=== PATIENT | male | born 1935 | race Two or more races ===

== ENCOUNTER 2018-10-10 23:25 | Inpatient (IN) | payer OTHER, MEDICAID ==
[~2018-10-10] VITALS: Ht 172.7 cm; Wt 81.6 kg
--- NOTE | 2018-10-10 23:32 | NUR ---
REYNALDO FROM HOME FOR GEN WEAKNESS PER DAUGHTERS REPORT; PT ALERT, VERBALLY RESPONSIVE, PT ON MONITOR, VSS, NAD NOTED. PENDING MD BOX
[2018-10-11 01:00] LABS: BASOPHILS # (AUTO) 0.2 /CMM (0.0-0.2); BASOPHILS % (AUTO) 3.1 % (0.0-2.0); HEMATOCRIT 41 % (39-51); HEMOGLOBIN 13.2 g/dL (13.5-17.5); LYMPHOCYTES # (AUTO) 0.5 /CMM (0.8-4.8); LYMPHOCYTES % (AUTO) 8.8 % (20.0-44.0); MEAN CORPUSCULAR HGB CONC 33 g/dl (31.0-36.0); MEAN CORPUSCULAR VOLUME 94 fL (80-96); MONOCYTES # (AUTO) 0.4 /CMM (0.1-1.30); MONOCYTES % (AUTO) 6.4 % (2.0-12.0); NEUTROPHILS # (AUTO) 4.6 /CMM (1.8-8.9); NEUTROPHILS % (AUTO) 81.7 % (43.0-81.0); PLATELET COUNT (AUTO) 133 /CMM (150-450); RED BLOOD CELL COUNT(AUTO) 4.33 MIL/uL (4.5-6.0); WHITE BLOOD COUNT (AUTO) 5.6 K/uL (4.3-11.0)
[2018-10-11] MEDS ORDERED: IV NS 0.9% 1,000 ML BAG IV ONE (01:00)
[2018-10-11 01:08] LABS: CALCIUM, SERUM 8.4 mg/dL (8.5-10.1); CARBON DIOXIDE 29 mmol/L (21-32); CHLORIDE 96 mmol/L (98-107); CREATININE 1.1 mg/dL (0.6-1.3); GLUCOSE 119 mg/dL (74-106); POTASSIUM 3.9 mmol/L (3.5-5.1); SODIUM SERUM 131 mmol/L (136-145); UREA NITROGEN, BLOOD 15 mg/dL (7-18)
[2018-10-11 01:13] LABS: SERUM AMMONIA 9 umol/L (11-32)
--- NOTE | 2018-10-11 01:22 | NUR ---
URINE COLLECTED AND SENT TO LAB
[2018-10-11 01:25] LABS: ACETAMINOPHEN 0 ug/ml (10-30); ALANINE AMINOTRANSFERASE 60 U/L (12-78); ALBUMIN 2.7 g/dL (3.4-5.0); ALCOHOL, BLOOD < 3 mg/dL (0-0); ALKALINE PHOSPHATASE 112 U/L (46-116); ASPARTATE AMINOTRANSFERASE 43 U/L (15-37); BILIRUBIN,DIRECT 0.2 mg/dL (0.0-0.2); BILIRUBIN,TOTAL 0.9 mg/dL (0.2-1.0); TOTAL PROTEIN, SERUM 6.7 g/dL (6.4-8.2)
[2018-10-11 01:49] LABS: APPEARANCE,URINE SL CLOUDY (CLEAR); BILIRUBIN,URINE NEGATIVE (NEGATIVE); BLOOD, URINE 3+ Ery/uL (NEGATIVE); COLOR,URINE YELLOW (YELLOW); KETONES,URINE 1+ (NEGATIVE); LEUKOCYTE ESTERASE ,URINE NEGATIVE (NEGATIVE); NITRITE, URINE NEGATIVE (NEGATIVE); PH,URINE 8.5 (5.0-8.0); PROTEIN,URINE 1+ mg/dl (NEGATIVE); UGLUCOSE NEGATIVE (NEGATIVE)
[2018-10-11 01:57] LABS: BACTERIA,URINE None seen /HPF (None Seen); RBC,URINE 51-80 /HPF (0-2); SQUAMOUS EPITHELIAL CELL,UR Few /HPF (None Seen); WBC,URINE 0-2 /HPF (0-3)
[2018-10-11 02:03] LABS: THYROID STIMULATING HORMONE 1.469 uIU/mL (0.358-3.74)
[2018-10-11] MEDS ORDERED: DILTIAZEM HCL 50 MG IV IV ONE ×2 (02:30→03:30)
[2018-10-11] MEDS ORDERED: DILTIAZEM HCL 25 MG IV ONE (02:32)
--- NOTE | 2018-10-11 03:12 | NUR ---
GRANDDAUGHTER CONTACT INFORMATION:
--- NOTE | 2018-10-11 03:14 | NUR ---
[facility]
[2018-10-11] MEDS ORDERED: LISI10TA5 GT (03:32)
[2018-10-11] MEDS ORDERED: RIVA10TA GT (03:32)
[2018-10-11] MEDS ORDERED: CHOL100062 GT (03:32)
[2018-10-11] MEDS ORDERED: GLYC1TAB12 GT (03:32)
[2018-10-11] MEDS ORDERED: METO50TA16 GT (03:32)
[2018-10-11] MEDS ORDERED: TERA1CAP4 GT (03:32)
[2018-10-11] MEDS ORDERED: FINA5TAB11 GT (03:32)
[2018-10-11] MEDS ORDERED: ATOR20TA GT (03:32)
[2018-10-11] MEDS ORDERED: FURO40TA5 GT (03:32)
[2018-10-11] MEDS ORDERED: LANS30CA56 PO (03:32)
--- NOTE | 2018-10-11 03:45 | NUR ---
REPORT GIVEN TO SONJA SCHRADER FOR [facility] PATIENT WILL BE TRANSPORTED VIA [facility]
[2018-10-11] MEDS ORDERED: ZOLPIDEM TARTRATE 5 MG TABLET PO PRN (04:00)
[2018-10-11] MEDS ORDERED: ONDANSETRON HCL/PF 4 MG/2 ML VIAL IVP PRN (04:00)
[2018-10-11] MEDS ORDERED: MAGNESIUM HYDROXIDE 30 ML UDC PO PRN (04:00)
[2018-10-11] MEDS ORDERED: ACETAMINOPHEN 325 MG TABLET PO PRN (04:00)
[2018-10-11] MEDS ORDERED: Z GUARD REMEDY 2 OZ OINT TP PRN (04:00)
[2018-10-11] MEDS ORDERED: HYDROCODONE/APAP 5/325MG 1 EACH TABLET PO PRN (04:00)
[2018-10-11] MEDS ORDERED: MAG HYDROX/AL HYDROX/SIMETH 30 ML UDC PO PRN (04:00)
[2018-10-11] MEDS ORDERED: METOPROLOL TARTRATE INJ 5 MG/5 ML AMPUL IVP PRN (04:00)
--- NOTE | 2018-10-11 04:00 | NUR ---
CLAY STRUCTURE BUILDER AND SERVICER ADMITTING NOTES RECEIVED PT FROM ER VIA [facility] IN STABLE CONDITION. PT A/O X3 AND ABLE TO MAKE NEEDS KNOWN. PT WITH GTUBE, PATENT AND INTACT. PT WITH RIGHT AC 18G SL, PATENT AND INTACT. PT ON TELE MONITORING AT AFIB 110. NO COMPLAINTS OF PAIN AT THIS TIME. CALL LIGHT WITHIN REACH. WILL CONTINUE TO MONITOR.
[2018-10-11] MEDS ORDERED: DILTIAZEM HCL 30 MG TABLET PO SCH (06:00)
[2018-10-11 06:34] LABS: MAGNESIUM 1.7 mg/dL (1.8-2.4); PHOSPHORUS 2.2 mg/dL (2.5-4.9)
[2018-10-11 06:37] LABS: THYROID STIMULATING HORMONE 1.135 uIU/mL (0.358-3.74)
[2018-10-11 06:45] VITALS: BP 151/97
[2018-10-11] MEDS ORDERED: ZOLPIDEM TARTRATE 5 MG TABLET GT PRN (07:30)
[2018-10-11] MEDS ORDERED: ACETAMINOPHEN 650 MG/20.3 ML UDC GT PRN (07:30)
[2018-10-11] MEDS ORDERED: MAGNESIUM HYDROXIDE 30 ML UDC GT PRN (07:30)
--- NOTE | 2018-10-11 07:52 | NUR ---
PLACEMENT OFFICER NOTES PT IN BED AWAKE WATCHING TV. PT A/O X3 AND ABLE TO MAKE NEEDS KNOWN. PT WITH GTUBE, PATENT AND INTACT. PT NPO. PT WITH RIGHT AC 18G SL, PATENT AND INTACT. PT ON TELE MONITORING AT AFIB 103. NO COMPLAINTS OF PAIN AT THIS TIME. CALL LIGHT WITHIN REACH. WILL ENDORSE TO ONCOMING NURSE FOR S[place].
[2018-10-11 08:00] VITALS: BP 150/88
[2018-10-11] MEDS ORDERED: HYDROCODONE/APAP 5/325MG 1 EACH TABLET GT PRN (08:00)
--- NOTE | 2018-10-11 08:00 | NUR ---
M/S ASBESTOS BRAKE LINING FINISHER OPENING NOTES PATIENT A/O X 2 AND ABLE TO MAKE NEEDS KNOWN. RESPIRATION EVEN AND UNLABORED WITH NO ACUTE RESPIRATORY DISTRESS. ABDOMEN SOFT AND NON DISTENDED WITH ACTIVE BOWEL SOUNDS. DENIES PAIN AND DISCOMFORT. SKIN WARM TO TOUCH. IV SITE ON RIGHT ANTECUBITAL WITH NO S/SX OF INFILTRATION. TELE MONITOR ON ATRIAL FIBRILLATION AT 108. ALL CONCERNS NOTED, PLACED CALL LIGHT WITHIN REACH TO ENSURE SAFETY. WILL CONTINUE TO EVALUATE CARE.
[2018-10-11] MEDS: Magnesium 1GM/D5W 100ML PREMIX 100 ML IV SCH ×2 (09:59→11:38)
[2018-10-11] MEDS: CHOLECALCIFEROL 1,000 UNIT TABLET (VIT D3) GT SCH (10:00)
[2018-10-11] MEDS ORDERED: MAG HYDROX/AL HYDROX/SIMETH 30 ML UDC GT PRN (10:00)
[2018-10-11] MEDS: FINASTERIDE (5 MG) 5 MG TABLET GT SCH (10:00)
[2018-10-11] MEDS: LISINOPRIL (10MG) 10 MG TABLET GT SCH (10:00)
[2018-10-11] MEDS: GLYCOPYRROLATE 1 MG TABLET GT SCH ×3 (10:02→22:20)
[2018-10-11] MEDS: NEUTRA PHOS 1 POWD.PACKET GT SCH ×2 (10:02→17:28)
[2018-10-11] MEDS: METOPROLOL TARTRATE 50 MG TABLET GT SCH ×2 (12:40→17:28)
[2018-10-11] MEDS: DILTIAZEM HCL 30 MG TABLET GT SCH ×2 (12:41→17:30)
[2018-10-11 16:00] VITALS: BP 119/71
[2018-10-11] MEDS ORDERED: GLUCERNA 1.2 1,000 ML BOTTLE GT SCH ×2 (17:00→22:00)
[2018-10-11] MEDS: GLUCERNA SHAKE 237 ML CAN GT SCH (17:27)
[2018-10-11] MEDS ORDERED: RIVAROXABAN 10 MG TABLET GT SCH (18:00)
--- NOTE | 2018-10-11 18:47 | NUR ---
M/S RN CLOSING NOTES PATIENT A/O X4 AND ABLE TO MAKE NEEDS KNOWN WITH UNCLEAR SPEECH DUE TO ABSENCE OF TONGUE. RESPIRATION EVEN AND NON LABORED WITH NO ACUTE RESPIRATORY DISTRESS. ABDOMEN SOFT AND NON DISTENDED WITH ACTIVE BOWEL SOUNDS, NO BM THIS SHIFT WITHOUT URGE AT THIS TIME. SKIN WARM TO TOUCH, INTACT AND DRY WITH NO OPEN SKIN BREAKDOWN. IV SITE PATENT ON RIGHT ANTECUBITAL WITH GAUGE #18, ON KVO. ALL CONCERNS ATTENDED, PLACED CALL LIGHT WITHIN REACH TO ENSURE SAFETY AT ALL TIMES. ENDORSED PATIENT CONDITION TO NEXT SHIFT.
--- NOTE | 2018-10-11 19:20 | NUR ---
MS/RN NOTES RECEIVED PT. LYING IN BED. PT. IS RESTING, EASILY AROUSABLE TO NAME. AWAKE, ALERT AND ORIENTED X3. BREATHING EVEN AND UNLABORED ON ROOM NO SOB, RESPIRATORY DISTRESS OR COMPLAINTS OF PAIN NOTED AT THIS TIME. PT. WITH RIGHT AC 18 GAUGE PRESENT, PATENT AND INTACT. PT. REMAINS NPO AT THIS TIME. PT. WITH G-TUBE PRESENT, PATENT AND INTACT. BED LOCKED AND IN LOWEST POSITION, SIDE RAILS UP X2, BED ALARM ON, WILL CONTINUE TO MONITOR.
[2018-10-11 20:00] VITALS: BP 108/56
[2018-10-11] MEDS ORDERED: GLUCERNA SHAKE 237 ML CAN GT SCH (22:00)
[2018-10-11] MEDS ORDERED: TERAZOSIN HCL 1 MG CAPSULE GT SCH (22:00)
[2018-10-12] MEDS: METOPROLOL TARTRATE 50 MG TABLET GT SCH ×3 (00:42→12:08)
[2018-10-12] MEDS: DILTIAZEM HCL 30 MG TABLET GT SCH ×3 (00:42→12:08)
[2018-10-12 04:05] LABS: BASOPHILS % (AUTO) 0.5 % (0.0-2.0); HEMATOCRIT 38 % (39-51); HEMOGLOBIN 12.6 g/dL (13.5-17.5); LYMPHOCYTES # (AUTO) 0.7 /CMM (0.8-4.8); LYMPHOCYTES % (AUTO) 13.4 % (20.0-44.0); MEAN CORPUSCULAR HGB CONC 33 g/dl (31.0-36.0); MEAN CORPUSCULAR VOLUME 93 fL (80-96); MONOCYTES # (AUTO) 0.5 /CMM (0.1-1.30); MONOCYTES % (AUTO) 9.6 % (2.0-12.0); NEUTROPHILS # (AUTO) 4.3 /CMM (1.8-8.9); NEUTROPHILS % (AUTO) 76.5 % (43.0-81.0); PLATELET COUNT (AUTO) 107 /CMM (150-450); RED BLOOD CELL COUNT(AUTO) 4.08 MIL/uL (4.5-6.0); WHITE BLOOD COUNT (AUTO) 5.6 K/uL (4.3-11.0)
[2018-10-12 04:18] LABS: ALANINE AMINOTRANSFERASE 48 U/L (12-78); ALBUMIN 2.3 g/dL (3.4-5.0); ALKALINE PHOSPHATASE 85 U/L (46-116); ASPARTATE AMINOTRANSFERASE 40 U/L (15-37); CARBON DIOXIDE 28 mmol/L (21-32); CHLORIDE 99 mmol/L (98-107); CHOLESTEROL 53 mg/dL (<200); GLUCOSE 99 mg/dL (74-106); HDL CHOLESTEROL 28 mg/dL (40-60); LDL 27 mg/dL (0-99); MAGNESIUM 1.9 mg/dL (1.8-2.4); PHOSPHORUS 2.4 mg/dL (2.5-4.9); POTASSIUM 4.1 mmol/L (3.5-5.1); SODIUM SERUM 132 mmol/L (136-145); TOTAL PROTEIN, SERUM 6.1 g/dL (6.4-8.2); TRIGLYCERIDES 27 mg/dL (30-150); UREA NITROGEN, BLOOD 15 mg/dL (7-18)
[2018-10-12] MEDS: GLYCOPYRROLATE 1 MG TABLET GT SCH ×2 (06:11→12:08)
[2018-10-12] MEDS ORDERED: PANTOPRAZOLE 40 MG TABLET.DR PO SCH (07:30)
[2018-10-12 08:00] VITALS: BP 119/76
--- NOTE | 2018-10-12 08:09 | NUR ---
M/S RN OPENING NOTES PATIENT A/O X 4 AND ABLE TO MAKE NEEDS KNOWN. RESPIRATION EVEN AND UNLABORED WITH NO ACUTE RESPIRATORY DISTRESS, WHEEZES PRESENT UPON AUSCULTATION. ABDOMEN SOFT AND NON DISTENDED WITH ACTIVE BOWEL SOUNDS. SKIN WARM TO TOUCH, INTACT AND DRY. DENIES PAIN AND DISCOMFORT AT THIS TIME. IV LINE ON RIGHT ANTECUBITAL PATENT WITH NO S/SX OF INFILTRATION, RUNNING ON KVO. ALL CONCERNS ADDRESSED. PLACED CALL LIGHT WITHIN REACH TO ENSURE SAFETY. WILL CONTINUE TO EVALUATE CARE.
[2018-10-12] MEDS ORDERED: AZITHROMYCIN 250 MG TABLET GT ONE (08:30)
[2018-10-12] MEDS ORDERED: NEUTRA PHOS 1 POWD.PACKET GT SCH (08:30)
--- NOTE | 2018-10-12 08:34 | NUR ---
RACIEL Decker will get checklist completed before CT scan takes place. Pt. will be ready for CT at around 0900.
[2018-10-12] MEDS: FINASTERIDE (5 MG) 5 MG TABLET GT SCH (08:49)
[2018-10-12] MEDS: CHOLECALCIFEROL 1,000 UNIT TABLET (VIT D3) GT SCH (08:49)
[2018-10-12] MEDS: LISINOPRIL (10MG) 10 MG TABLET GT SCH (08:50)
[2018-10-12] MEDS: GLUCERNA SHAKE 237 ML CAN GT SCH ×2 (08:51→12:08)
[2018-10-12] MEDS ORDERED: IOHEXOL-300 100 ML VIAL IV ONE (10:01)
[2018-10-12] MEDS ORDERED: IV NS 0.9% 250 ML IV ONE (10:02)
[2018-10-12] MEDS ORDERED: CT SWABBABLE VALVE TRANS SET 1 EA INFUS.SET MC ONE (10:02)
[2018-10-12 12:08] VITALS: BP 122/78
--- NOTE | 2018-10-12 13:23 | NUR ---
M/S RN RELAYED CT SCAN RESULT TO DR. SCHMIDT WITH NEW ORDER OF LEVAQUIN 500 MG TAB PO ONE TIME DOSE. ORDER NOTED AND CARRIED OUT. PATIENT NOTIFIED
[2018-10-12] MEDS ORDERED: LEVOFLOXACIN (500MG) 500 MG TABLET PO ONE (13:30)
--- NOTE | 2018-10-12 13:55 | NUR ---
M/S RN PATIENT REQUESTED FOR INFLUENZA AND PNEUMOCOCCAL VACCINE ADMINISTRATION TODAY. RISK AND BENEFITS DISCUSSED WITH PATIENT AND RECEIVED VERBAL CONSENT FROM PATIENT TO ADMINISTER. RELAYED TO DR. GODINEZ WITH ORDER NOTED AND CARRIED OUT. PATIENT NOTIFIED
[2018-10-12] MEDS ORDERED: PNEUMOCOCCAL 23-VAL P-SAC VAC 0.5 ML VIAL SQ ONE (14:00)
--- NOTE | 2018-10-12 15:05 | NUR ---
M/S CIVIL ENGINEERING DESIGN DRAFTSPERSON NOTES PATIENT DISCHARGED ACCOMPANIED BY YURI GRAND DAUGHTER IN PRIVATE CARE. PATIENT A/O X 4 AND ABLE OT MAKE NEEDS KNOWN. RESPIRATION EVEN AND UNLABORED WITH NO ACUTE RESPIRATORY DISTRESS. ABDOMEN SOFT AND NON DISTENDED WITH ACTIVE BOWEL SOUNDS; LBM TODAY WITH SOFT BROWN STOOL. DENIES PAIN AN DISCOMFORT. SKIN INTACT AND DRY WITH NO OPEN SKIN BREAKDOWN. IV REMOVED WITH NO S/SX OF INFECTION ASSESSED. EXIT CARE PROVIDED WITH DISCHARGE INSTRUCTION BY MD DISCUSSED. ALL CONCERNS ATTENDED. LEFT IN STABLE CONDITION.
[2018-10-12] MEDS ORDERED: ATORVASTATIN 10 MG TABLET GT SCH (22:00)
== END 2018-10-12 15:00 | disposition home health service (06) | DRG 202 ==
LOC: ER 23:28 → EDBD 23:28 → TELE 10-11 02:56 → MED 10-11 09:47
PROVIDERS: ADMIT Internal Medicine; ATTEND Internal Medicine
DX: J20.9 Acute bronchitis, unspecified (principal); E87.1 Hypo-osmolality and hyponatremia; I48.91 Unspecified atrial fibrillation; Z86.73 Personal history of transient ischemic attack (TIA), and cerebral infarction without residual deficits; I10 Essential (primary) hypertension; E11.9 Type 2 diabetes mellitus without complications; D64.9 Anemia, unspecified; D69.6 Thrombocytopenia, unspecified; E86.1 Hypovolemia; D63.8 Anemia in other chronic diseases classified elsewhere; E83.39 Other disorders of phosphorus metabolism; E83.42 Hypomagnesemia; R13.10 Dysphagia, unspecified; Z93.1 Gastrostomy status; Z85.810 Personal history of malignant neoplasm of tongue; Z79.899 Other long term (current) drug therapy
CPT/HCPCS: 36415; 70450-TC; 71045-TC; 71260-TC; 80048-TC; 80053-TC; 80061-TC; 80076-TC; 80305; 81000-TC; 82140-TC; 83540-TC; 83735-TC; 84100-TC; 84443-TC; 84484-TC; 85025-TC; 85730-TC; 87081-TC; 87086-TC; 90732; 93307-TC; G0378; G0480; J3475; J3490; J7030; J7050; Q2036; Q9967